=== PATIENT | male | born 1965 | race Caucasian/White ===

== ENCOUNTER 2024-01-19 12:32 | Emergency (ER) | payer MEDICAID, SELFPAY ==
[2024-01-19 12:33] VITALS: BP 158/110
--- NOTE | 2024-01-19 12:42 | ED.GENMED ---
ED Provider Triage
<Deonte Peña PA-C - Last Filed: 01/19/24 12:43>
-
Patient seen by provider in Triage?: Seen in Triage
58-year-old otherwise healthy male with worsening left-sided facial swelling over the past 3 to 4 days. He notes redness underneath the eye and is now spreading around the eye. He is not diabetic. No noted fever
Vital signs stable at triage. Will order labs and CT with IV contrast of the face to evaluate for underlying abscess. Consider cellulitis otherwise
Patient received medical screening assessment by healthcare provider at triage. Further evaluation is necessary
History of Present Illness
<Deonte Peña PA-C - Last Filed: 01/19/24 12:43>
General
Chief Complaint: Swelling
Time Seen by Provider: 01/19/24 14:19
<Neyda Barboza SALVAGE SUPERVISOR - Last Filed: 01/19/24 20:59>
General
Source: patient
Exam Limitations: none
Nursing documentation reviewed up to this point in time: agreed with
History of Present Illness
History of Present Illness:
58-year-old male with reported no past medical history, presents from urgent care with an area of redness, swelling upper left cheek which he states started 3 days ago. He denies fever or chills. Denies nausea or vomiting. States he feels well
otherwise.
Past History
<Neyda Barboza [employer]VAGE SUPERVISOR - Last Filed: 01/19/24 20:59>
Past History
ED Past Medical History: None
ED Past Surgical History: None
Social History
Tobacco: Non-smoker
Alcohol: None
Personal: Single
Living: alone
Employment: Not employed
Review of Systems
<Neyda Barboza [employer]VAGE SUPERVISOR - Last Filed: 01/19/24 20:59>
Review of Systems
Allergies reviewed?: Yes
All Other Systems: ROS reviewed and negative except as documented in HPI and ROS
Constitutional: Denies fever or chills
ABD/GI: Denies nausea
Skin: Reports other (swollen, tender area under left eye)
Neurological: Denies headache
Phy Exam
<Neyda Barboza [employer]VAGE SUPERVISOR - Last Filed: 01/19/24 20:59>
Physical Exam
Physical Exam:
GENERAL: No acute distress. A&Ox3.
CONSTITUTIONAL: Afebrile.
EYES: PERRL, conjunctivae normal, EOMs intact.
Neck: Supple
ENMT: moist mucus membranes, Pharynx nl
RESPIRATORY: Regular respirations, nonlabored, lungs clear.
CARDIOVASCULAR: Regular rate and rhythm, no murmurs, no rubs.
MUSCULOSKELETAL: Moves with ease. Well perfused.
SKIN: Warm, dry, pink. Left upper cheek/infraorbital with 3 cm area locally erythematous with central 3 mm tender, fluctuant area
PSYCH: Normal mood and affect. Well kept, interactive and appropriate
NEUROLOGIC: Awake, alert and oriented. No focal neurological deficits
Scores
<Neyda Barboza, [employer]VAGE SUPERVISOR - Last Filed: 01/19/24 20:59>
Heart Failure Risk
Heart Failure Risk Score: Not Applicable
Course
<Deonte Peña PA-C - Last Filed: 01/19/24 12:43>
Orders/Labs/Results
Orders:
Orders
01/19/24 12:41
CT Facial Bones W/ Iv Contrast Urgent
Comment:
Reason For Exam: left sided facial swelling
01/19/24 12:50
Complete Blood Count/With Diff Urgent
Comprehensive Metabolic Panel Urgent
01/19/24 14:52
Doxycycline [Vibramycin] 100 mg PO NOW STA
Abnormal Lab Results
01/19/24
12:50
Lymphocytes % 19.5 L %
(20.5-51.1)
01/19/24 12:50
01/19/24 12:50
Vital Signs
Initial and Last Documented VS:
Initial Vital Signs
Temp Pulse Resp BP Pulse Ox
97.8 F 100 16 158/110 98
01/19/24 12:33 01/19/24 12:33 01/19/24 12:33 01/19/24 12:33 01/19/24 12:33
Last Documented Vital Signs
Temp Pulse Resp BP Pulse Ox
97.8 F 68 19 109/70 99
01/19/24 12:33 01/19/24 14:48 01/19/24 14:48 01/19/24 14:48 01/19/24 14:48
<Neyda Barboza, SALVAGE SUPERVISOR - Last Filed: 01/19/24 20:59>
Orders/Labs/Results
Orders:
Orders
01/19/24 12:41
CT Facial Bones W/ Iv Contrast Urgent
Comment:
Reason For Exam: left sided facial swelling
01/19/24 12:50
Complete Blood Count/With Diff Urgent
Comprehensive Metabolic Panel Urgent
01/19/24 14:52
Doxycycline [Vibramycin] 100 mg PO NOW STA
Abnormal Lab Results
01/19/24
12:50
Lymphocytes % 19.5 L %
(20.5-51.1)
01/19/24 12:50
01/19/24 12:50
Vital Signs
Initial and Last Documented VS:
Initial Vital Signs
Temp Pulse Resp BP Pulse Ox
97.8 F 100 16 158/110 98
01/19/24 12:33 01/19/24 12:33 01/19/24 12:33 01/19/24 12:33 01/19/24 12:33
Last Documented Vital Signs
Temp Pulse Resp BP Pulse Ox
97.8 F 68 19 109/70 99
01/19/24 12:33 01/19/24 14:48 01/19/24 14:48 01/19/24 14:48 01/19/24 14:48
<Neyda Barboza [employer]VAGE SUPERVISOR - Last Filed: 01/19/24 20:59>
MDM/Problems Addressed
Differential Diagnosis Includes:
infected pimple, early abscess
MDM/Problems Addressed:
58-year-old male with reported no past medical history, presents from urgent care with an area of redness, swelling upper left cheek which he states started 3 days ago. He denies fever or chills. Denies nausea or vomiting. States he feels well
otherwise.
Afebrile
Tender, erythematous area left upper cheek/infraorbital area with central pustule (like an infected pimple), no head on it, not able to express any pus.
Plan: Oral Doxycycline. He has no doctor so informed to return if worse
First dose Doxycycline given here, rx sent to his [facility] pharmacy he states he has no trouble getting it.
<Neyda Barboza, SALVAGE SUPERVISOR - Last Filed: 01/19/24 20:59>
*Critical Care Note
Total Time (30-74mins, 75-104mins- exclusive of procedures): Not Applicable
ED Attending Note
<Deonte Peña PA-C - Last Filed: 01/19/24 12:43>
-
Portions of this chart may have been created with voice recognition software.� Occasional wrong word or��sound alike� substitutions may have occurred due to the inherent limitations of voice recognition software.
Discharge Plan
Departure
Patient Disposition: Home (Routine Discharge)
Date of Disposition: 01/19/24
Time of Disposition: 15:06
Patient with high blood pressure during this ER visit?: No
Condition: Good
Discharge Problem:
Cellulitis of face
Instructions: Cellulitis (Skin Infection), Adult ED
Prescriptions:
New
doxycycline hyclate 100 mg tablet
100 mg PO BID Qty: 20 0RF
Referrals:
NONE,* [Family Provider] -
Activity Restrictions/Additional Instructions:
As we discussed, I sent a prescription to your pharmacy for the antibiotic doxycycline to take twice a day for 10 days.
Start it tonight as you were given a dose here today.
Return here immediately if the area gets more red, more swollen, more painful, you develop a fever, chills, nausea or feeling sicker in any way
Warm moist compress to the area 10 minutes 4 times a day for the next 2 to 3 days as it may come to a head and drain like a pimple
Interventions
Interventions:
*Risk Screen - Suicide Last Done: 01/19/24 12:33
*General Assessment Last Done: 01/19/24 12:33
*Neglect/Abuse Screening Last Done: 01/19/24 12:33
*ED COVID-19 Vaccine History Last Done: 01/19/24 12:33
*Nursing Disposition Last Done: 01/19/24 15:14
ED- Cardiac Assessment Last Done: 01/19/24 14:46
ED- Pulmonary Assessment Last Done: 01/19/24 14:46
ED-Skin Assessment Last Done: 01/19/24 14:47
Discharge Date and Time
Discharge Date/Time: 01/19/24 15:14
Print Language: [place]
[2024-01-19 12:59] LABS: % Basophils 0.3 % (0-2); % Eosinophils 1.3 % (0-6); % Immature Granulocytes 0.1 % (0-0.5); % Lymphocytes 19.5 % (20.5-51.1); % Monocytes 8.7 % (1.7-9.3); % Neutrophils 70.1 % (42.2-75.2); Absolute Eosinophils 0.1 10^3/uL (0-0.7); Absolute Lymphocytes 1.4 10^3/uL (1.2-3.4); Absolute Monocytes 0.6 10^3/uL (0.1-0.6); Absolute Neutrophils 4.9 10^3/uL (1.4-6.5); Hematocrit 44.6 % (39.0-52.0); Hemoglobin 15.2 g/dL (13.0-18.0); Mean Corp Hgb Conc. 34.1 g/dL (33.0-37.0); Mean Corpuscular Volume 85.1 fL (80.0-94.0); Mean Platelet Volume 8.9 fL (7.4-10.4); Nucleated Red Blood Cells % 0 % (-); Platelet Count 267 10^3/uL (130-400); Red Blood Cell Count 5.24 10^6/uL (4.70-6.10)
[2024-01-19 13:19] LABS: ALT (SGPT) 19 U/L (0-50); AST (SGOT) 25 U/L (17-59); Albumin 4.5 g/dl (3.5-5.0); Alkaline Phosphatase 82 U/L (38-126); Blood Urea Nitrogen 10 mg/dl (9-20); Calcium 9.3 mg/dl (8.4-10.2); Carbon Dioxide 28 mmol/L (22-30); Chloride 103 mmol/L (98-107); Glucose 91 mg/dl (70-99); Potassium 4.1 mmol/L (3.5-5.1); Sodium 141 mmol/L (135-145); Total Bilirubin 0.4 mg/dl (0.2-1.3); eGFR > 60.00
[2024-01-19 14:48] VITALS: BP 109/70
[2024-01-19] MEDS: VIBRAMYCIN 100 MG PO (15:01)
== END 2024-01-19 15:14 | disposition home or self-care (01) ==
LOC: EMR 12:32
PROVIDERS: Physician Assistant; EMERGENCY PHYSICIAN Student in an Organized Health Care Education/Training Program
DX: L03.211 Cellulitis of face (principal)
CPT/HCPCS: 99284; 70487; 80053; 85025; Q9967